=== PATIENT | male | born 1990 | race Caucasian/White ===

== ENCOUNTER 2017-03-01 09:03 | Emergency (ER) | payer OTHER ==
[2017-03-01 09:13] VITALS: BP 121/56; PULSE 57; RESP 18; O2SAT 96
[2017-03-01] MEDS ORDERED: 0.9% Sodium Chloride Inhalation Solution BOTH_EYES ONE (09:35)
[2017-03-01] MEDS ORDERED: Tetracaine 0.5% 4 mL Ophthalmic Solution BOTH_EYES ONE (09:35)
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
[2017-03-01] MEDS ORDERED: Naphazoline/Pheniramine 5 mL Ophthalmic Solution BOTH_EYES PRN (13:20)
[2017-03-01] MEDS ORDERED: Gentamicin 0.3% 5 mL Ophthalmic Solution BOTH_EYES ONE (13:20)
[2017-03-01 13:46] VITALS: PULSE 67; RESP 16; O2SAT 98
[2017-03-01] MEDS ORDERED: AZIT500T5 PO (13:54)
[2017-03-01 14:19] VITALS: BP 121/56; PULSE 67; RESP 16; O2SAT 98
== END 2017-03-01 14:20 | disposition home or self-care (01) ==
LOC: SED 09:03
DX: T59.3X1A Toxic effect of lacrimogenic gas, accidental (unintentional), initial encounter (principal); H57.8 Other specified disorders of eye and adnexa; X58.XXXA Exposure to other specified factors, initial encounter; Y93.89 Activity, other specified; Y92.89 Other specified places as the place of occurrence of the external cause; Y99.0 Civilian activity done for income or pay